=== PATIENT | male | born 2000 | race American Indian/Alaskan Native ===

== ENCOUNTER 2018-03-28 02:42 | Emergency (ER) | payer SELFPAY ==
[2018-03-28 02:56] VITALS: BP 132/87
--- NOTE | 2018-03-28 03:07 | EDM.PDOC ---
ED HPI GENERAL MEDICAL PROBLEM - General Chief Complaint: General Stated Complaint: MEDICAL CLEARANCE Time Seen by Provider: 03/28/18 03:02 - History of Present Illness INITIAL COMMENTS - FREE TEXT/NARRATIVE: HISTORY AND PHYSICAL: History of present illness: The patient is a 17-year-old male who is here with long forceps for a medical screening exam. He says he has a history of hypoglycemia and he did not eat much today so he like his sugar checked. He's not had any recent dizziness lightheadedness chest pain shortness of breath fever chills . He says he's been under a lot of stress and he has not been eating very much lately so he would like a sugar to be checked. Review of systems: As per history of present illness and below otherwise all systems reviewed and negative. Past medical history: As per history of present illness and as reviewed below otherwise noncontributory. Surgical history: As per history of present illness and as reviewed below otherwise noncontributory. Social history: No reported history of drug or alcohol abuse. Family history: As per history of present illness and as reviewed below otherwise noncontributory. Physical exam: General: Well-developed well-nourished man who is nontoxic and inability to the ED without distress. Vital signs are reviewed by me HEENT: Atraumatic, normocephalic, pupils reactive, negative for conjunctival pallor or scleral icterus, mucous membranes moist, throat clear, neck supple, nontender, trachea midline. Lungs: Clear to auscultation, breath sounds equal bilaterally, chest nontender. Heart: S1S2, regular, rate and rhythm no overt murmurs Abdomen: Soft, nondistended, nontender. NABS Pelvis: Deferred Genitourinary: Deferred. Rectal: Deferred. Extremities: Atraumatic, full range of motion without defects or deficits Neurovascular unremarkable. Neuro: Awake, alert, oriented. Cranial nerves II through XII unremarkable. Cerebellum unremarkable. Motor and sensory unremarkable throughout. Exam nonfocal. Diagnostics: [employer]: [] Impression: Medical screening exam Definitive disposition and diagnosis as appropriate pending reevaluation and review of above. - Related Data Allergies Allergy/AdvReac Type Severity Reaction Status Date / Time No Known Allergies Allergy Verified 03/28/18 02:56 Home Meds: Home Meds . [No Known Home Meds] 10/29/14 [History] Past Medical History - Past Health History Medical/Surgical History: Denies Medical/Surgical History HEENT History: Reports: None Cardiovascular History: Reports: [place] Respiratory History: Reports: Asthma Gastrointestinal History: Reports: None Genitourinary History: Reports: Acute Renal Failure Musculoskeletal History: Reports: Back Pain, Chronic Neurological History: Reports: None Psychiatric History: Reports: ADHD, Anxiety, Depression Endocrine/Metabolic History: Reports: Other (See Below) Other Endocrine/Metabolic History: low blood sugar Hematologic History: Reports: Other (See Below) Other Hematologic History: Patient's father had a "rare blood disorder". Patient 's mother does not know what the disorder was and his father has . Immunologic History: Reports: None - Past Surgical History GI Surgical History: Reports: None Neurological Surgical History: Reports: None Social & Family History - Family History Family Medical History: Noncontributory HEENT: Reports: None Cardiac: Reports: [place] Respiratory: Reports: Asthma Psychiatric: Reports: Anxiety Endocrine/Metabolic: Reports: Diabetes, Type I, Diabetes, type II Hematologic: Reports: Other (See Below) Other Hematologic Family History: Father had a "rare blood disorder", per mother ' statement. He is and she does not know what type of blood disorder he had. Other Dermatologic Family History: father 1 year ago with rare blood disease of some kind - Tobacco Use Smoking Status *Q: Current Some Day Smoker Years of Tobacco use: 7 Packs/Tins Daily: 0.1 - Recreational Drug Use Recreational Drug Use: Yes Recreational Drug Type: Reports: Marijuana/Hashish Recreational Drug Use Frequency: Daily ED ROS GENERAL - Review of Systems Review Of Systems: ROS reveals no pertinent complaints other than HPI. ED EXAM, GENERAL - Physical Exam Exam: See Below (See dictation) Course - Vital Signs Last Recorded V/S: Last Vital Signs Temp 36.6 C 03/28/18 02:54 Pulse 101 H 03/28/18 02:54 Resp 18 03/28/18 02:54 BP 132/87 03/28/18 02:54 Pulse Ox 96 03/28/18 02:54 - Orders/Labs/Meds Labs: Laboratory Tests 03/28/18 Range/Units 02:59 POC Glucose 85 (60-110) mg/dL Departure - Departure Time of Disposition: 03:06 Disposition: Home, Self-Care 01 Condition: Good Clinical Impression: Encounter for medical screening examination - Discharge Information Referrals: PCP,None [Primary Care Provider] - Additional Instructions: The following information is given to patients seen in the emergency department who are being discharged to home. This information is to outline your options for follow-up care. We provide all patients seen in our emergency department with a follow-up referral. The need for follow-up, as well as the timing and circumstances, are variable depending upon the specifics of your emergency department visit. If you don't have a primary care physician on staff, we will provide you with a referral. We always advise you to contact your personal physician following an emergency department visit to inform them of the circumstance of the visit and for follow-up with them and/or the need for any referrals to a consulting specialist. The emergency department will also refer you to a specialist when appropriate. This referral assures that you have the opportunity for followup care with a specialist. All of these measure are taken in an effort to provide you with optimal care, which includes your followup. Under all circumstances we always encourage you to contact your private physician who remains a resource for coordinating your care. When calling for followup care, please make the office aware that this follow-up is from your recent emergency room visit. If for any reason you are refused follow-up, please contact the [facility] emergency department at and ask to speak to the emergency department charge nurse. [facility] Primary care- [place] [id number] Push hydration such as Gatorade water and juices. Try to eat small bites of food and call and schedule a follow-up appointment with your provider or one of hours for further care and evaluation. Return to ER as needed and as discussed
== END 2018-03-28 03:16 | disposition home or self-care (01) ==
LOC: MW.ED 02:42
DX: Z13.9 Encounter for screening, unspecified (principal); F17.210 Nicotine dependence, cigarettes, uncomplicated; I25.2 Old myocardial infarction
CPT/HCPCS: 82962; 99283